=== PATIENT | male | born 1975 | race Caucasian/White ===

== ENCOUNTER 2022-05-07 11:07 | Emergency (ER) | payer OTHER, SELFPAY ==
--- NOTE | 2022-05-07 11:29 | HMH.EDUTC ---
[facility] [place] Clinical Impression: Viral syndrome Disposition: Home, Self-Care Condition on Discharge: Good Instructions: DI for Viral Syndrome, Preventing the Spread of Coronavirus Discharge Instructions Additional Instructions: Drink plenty of fluids. Take tylenol or ibuprofen for pain or fever. Take the medications as directed. Follow up with your regular doctor. GO TO THE ER FOR ANY WORSENING SYMPTOMS Quarantine until you know the results of your covid-19 test. Notify your school or workplace of your results and follow their instructions regarding return to work/school. Prescriptions: Ondansetron [Zofran 4mg ODT] 4 mg PO Q8HP PRN #20 tab PRN Reason: Nausea Transmission Status: Received by [facility] [employer] Benzonatate [Benzonatate 100mg cap] 100 mg PO TIDP PRN #30 cap PRN Reason: Cough Transmission Status: Received by [facility] Referrals: Angel Shaffer MD [Primary Care Provider] - Forms: Work/School Release Time of Disposition: 12:00 Medical Decision Making - Medical Records Medical records reviewed: No: I reviewed the patient's medical records. - Lamberto Inquiry Pt receiving controlled substance: No Vital Signs: 05/07/22 11:30 05/07/22 12:06 Temperature 99.5 F 99.5 F Temperature Source Oral Pulse Rate 82 Pulse Rate [Left] 82 Respiratory Rate 16 16 Blood Pressure 108/69 L Blood Pressure [Right Arm] 108/69 L Blood Pressure Mean [Right Arm] 82 02 Sat by Pulse Oximetry 100 - Lab Data Lab results reviewed: Yes: I reviewed the patient's lab results. Lab Results 05/07/22 11:25: Strep Scn Rapid Clinic Negative 05/07/22 11:43: SARS-CoV-2 (PCR) Detected A, Influenza A Untype (PCR) Not detected, Influenza Type B (PCR) Not detected Orders (Tests/Meds): ORDERS Category Date Time Status Strep Screen Confirmation Stat Micro 05/07/22 11:25 Received [facility] [place] - General Stated complaint: chills, sore throat, body aches Time Seen by Provider: 05/07/22 11:29 - History of Present Illness Provider Complaint: He states that for the past 1 day he has had chills, body aches, low grade fever, nausea and sore throat. 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 - Related Data Previous Rx's Medication Instructions Recorded Benzonatate [Benzonatate 100mg 100 mg PO TIDP PRN #30 cap 05/07/22 cap] Ondansetron [Zofran 4mg ODT] 4 mg PO Q8HP PRN #20 tab 05/07/22 Allergies Allergy/AdvReac Type Severity Reaction Status Date / Time No Known Allergies Allergy Verified 05/07/22 11:33 [facility] History - Hepatitis A Screen Attestation statement:: This patient has been screened for Hepatitis A risk factors. I have reviewed the patient's past medical history: Yes ROS Obtained: Yes All systems reviewed & no additional complaints - Constitutional Constitutional: Reports as per HPI - Eyes Eyes: Denies eye discharge - ENT Ears, Nose, Mouth, and Throat: Reports as per HPI - Cardiovascular Cardiovascular: Denies chest pain Physical Exam - General General appearance: alert, in no apparent distress - Head Head exam: atraumatic, normocephalic, normal inspection - Eye Eye exam: Present: normal appearance, PERRL, EOMI - ENT ENT exam: Present: normal exam, normal oropharynx, mucous membranes moist, TM's normal bilaterally, normal external ear exam - Neck Neck exam: Present: normal inspection, full ROM, trachea midline. Absent: meningismus, lymphadenopathy - Chest Chest inspection: Present: normal inspection, symmetric chest wall rise. Absent: tenderness - Respiratory Respiratory exam: Present: normal lung sounds bilaterally. Absent: respiratory distress - Cardiovascular Cardiovascular exam: Present: regular rate, normal rhythm. Absent: JVD - Abdominal Exam Abdominal exam: Present: soft, normal bowel sounds. Absent: distention, tenderness, guarding - Extremities Exam Extremities
[2022-05-07 11:30] VITALS: BP 108/69; PULSE 82; RESP 16; TEMP 37.5; O2SAT 100; BMI 22.8
[2022-05-07 11:38] LABS: UTC Strep Screen (Rapid) Negative (Negative)
[2022-05-07 11:52] LABS: Influenza A, PCR Not Detected (NotDetected); Influenza B, PCR Not Detected (NotDetected)
[2022-05-07 12:06] VITALS: BP 108/69; PULSE 82; RESP 16; TEMP 37.5
[2022-05-07 13:37] LABS: Coronavirus 19, PCR Detected (NotDetected)
== END 2022-05-07 12:06 | disposition home or self-care (01) ==
PROVIDERS: Emergency Provider Nurse Practitioner Family; PCP Internal Medicine Adolescent Medicine
DX: U07.1 COVID-19 (principal)
CPT/HCPCS: 87880; 99212; C9803; G0463; U0003; U0005

== ENCOUNTER 2022-05-20 10:34 | Emergency (ER) | payer OTHER, SELFPAY ==
[2022-05-20 10:35] VITALS: BP 144/81; PULSE 83; RESP 16; TEMP 36.9; O2SAT 98; BMI 22.8
--- NOTE | 2022-05-20 10:45 | HMH.EDBACK ---
Discharge Plan Disposition Patient Disposition: Home, Self-Care Prescriptions Prescriptions: New ketorolac 10 mg tablet 10 mg PO Q8H PRN (Reason: pain) Qty: 20 0RF methocarbamol 750 mg tablet 750 mg PO Q8H Qty: 90 0RF hydrocodone-acetaminophen 5-325 mg tablet 1 tab PO Q6H PRN (Reason: pain) Qty: 10 0RF No Action benzonatate 100 MG capsule 100 mg PO TIDP PRN (Reason: Cough) Qty: 30 0RF ondansetron 4 MG tablet,disintegrating 4 mg PO Q8HP PRN (Reason: Nausea) Qty: 20 0RF Referrals Follow up/Referrals: Angel Shaffer MD [Primary Care Provider] - See instructions Clinical Impressions Clinical Impression: Strain of lumbar region, Sacroiliac joint pain Instructions Patient Instructions: DI for Low Back Pain, Hydrocodone, Methocarbamol, Ketorolac Print Language Print Language: Greenlandic Discharge ED Provider: Pan Moser Back Pain HPI General Chief Complaint: Back Pain/Injury Stated Complaint: lower back pain Time Seen by Provider: 05/20/22 10:45 Mode of Arrival: Ambulatory History of Present Illness HPI Narrative: 46-year-old male with history of prior lumbar fusion at L4-L5 about 12 years ago. He presents today with chief complaint of lower back pain radiating into the right hip and sacroiliac region. States he had been off work recently with COVID, went and resumed activities and over the past day has noticed significantly worsening pain. 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 Denies any numbness tingling, radiation of pain down the leg, urinary or fecal incontinence or retention, fevers, chills, nausea, vomiting or other symptoms at this time. Related Data Previous Rx's Medication Instructions Recorded benzonatate 100 mg capsule 100 mg PO TIDP PRN Cough #30 caps 05/07/22 ondansetron 4 mg disintegrating 4 mg PO Q8HP PRN Nausea #20 tabs 05/07/22 tablet hydrocodone 5 mg-acetaminophen 325 1 tab PO Q6H PRN pain #10 tabs 05/20/22 mg tablet ketorolac 10 mg tablet 10 mg PO Q8H PRN pain #20 tabs 09/05/22 methocarbamol 750 mg tablet 750 mg PO Q8H #90 tabs 05/20/22 Allergies Allergy/AdvReac Type Severity Reaction Status Date / Time No Known Allergies Allergy Verified 05/07/22 11:33 PFSH PFS Social History Smoking Status: Never smoker alcohol intake: never current occupational status: employed Travel in the last 8 weeks: None ROS Obtained: Yes Systems reviewed as appropriate & no additional complaints except as documented Constitutional Constitutional: Reports system reviewed and no additional complaints, except as documented Eyes Eyes: Reports system reviewed and no additional complaints, except as documented ENT Ears, Nose, Mouth, and Throat: Reports system reviewed and no additional complaints, except as documented and Denies neck pain Cardiovascular Cardiovascular: Reports system reviewed and no additional complaints, except as documented Respiratory Respiratory: Reports system reviewed and no additional complaints, except as documented Gastrointestinal Gastrointestingal: Reports system reviewed and no additional complaints, except as documented Genitourinary Male Genitourinary: Reports system reviewed and no additional complaints, except as documented Musculoskeletal Musculoskeletal: Reports as per HPI, Reports back pain, Denies neck pain, Denies numbness, Denies radiating pain into limb and Denies tingling Integumentary/Breasts Skin/Breast: Reports system reviewed and no additional complaints, except as documented Neurologic Neurologic: Reports system reviewed and no additional complaints, except as documented, Denies numbness and Denies tingling Physical Exam General General appearance: alert and in no apparent distress Head Head exam: atraumatic, normocephalic and normal inspection Eye Eye exam: Presen
--- NOTE | 2022-05-20 10:51 | XR_ITS ---
PROCEDURE INFORMATION: Exam: XR Pelvis Exam date and time: 05/20/2022 10:51 AM Age: 46 years old Clinical indication: Pelvic pain and other: Low back; Prior surgery; Surgery date: 6+ months; Surgery type: Years ago lumbar surgery; Additional info: Low back, sacral pain TECHNIQUE: Imaging protocol: Radiologic exam of the pelvis. Views: 1 or 2 view. COMPARISON: No relevant prior studies available. FINDINGS: Bones/joints: Artifact superimposed upon the sacrum. Incomplete visualization of postoperative changes in the lower lumbar spine. Soft tissues: Unremarkable. Vasculature: Scattered phleboliths in the pelvis. IMPRESSION: No evidence of acute osseous injury.
--- NOTE | 2022-05-20 10:51 | XR_ITS ---
PROCEDURE INFORMATION: Exam: XR Lumbosacral Spine Exam date and time: 05/20/2022 10:52 AM Age: 46 years old Clinical indication: Low back pain; Prior surgery; Surgery date: 6+ months; Surgery type: Years ago lumbar surgery; Additional info: Low back, sacral pain TECHNIQUE: Imaging protocol: Radiologic exam of the lumbosacral spine. Views: 2 or 3 views. COMPARISON: CR XR PELVIS 1-2V 05/20/2022 10:51 AM FINDINGS: Bones/joints: Postoperative changes consistent with anterior spinal fusion at L4-L5. No interbody spacers demonstrated. Clinically correlate. Pars defect incompletely visualized at L5. Irregularity of the fixation screw traversing the L5 vertebral body. Findings suggesting hardware malfunction. 2 mm retrolisthesis of L3 with respect L4. Moderate narrowing of the disc space. 2 mm retrolisthesis of L2 with respect L3. Soft tissues: Unremarkable. IMPRESSION: 1. Evidence of anterior spinal fusion at L4-L5. Findings suggesting hardware malfunction involving the fixation screw traversing the L5 vertebral body. Findings incompletely visualized. 2. 2 mm retrolisthesis of L3 with respect L4. 3. 2 mm retrolisthesis of L2 with respect L3.
--- NOTE | 2022-05-20 11:06 | PC.NURSE ---
pt return from radiology
[2022-05-20 12:46] VITALS: BP 121/85; PULSE 73; RESP 16; TEMP 36.9; O2SAT 99
== END 2022-05-20 12:46 | disposition home or self-care (01) ==
PROVIDERS: Emergency Provider Emergency Medicine; PCP Internal Medicine Adolescent Medicine
DX: S39.012A Strain of muscle, fascia and tendon of lower back, initial encounter (principal); M53.3 Sacrococcygeal disorders, not elsewhere classified; Z86.16 Personal history of COVID-19
CPT/HCPCS: 72100; 72170; 96372; 99283

== ENCOUNTER 2023-12-25 07:13 | Outpatient (CLI) | payer OTHER, SELFPAY ==
[2023-12-25 07:35] LABS: Basophils # 0.1 K/mm3 (0-0.2); Basophils % 3.8 % (0.1-2.0); Eosinophils # 0.1 K/mm3 (0.0-0.4); Eosinophils % 2.6 % (0.1-12.0); Hemoglobin 16.7 g/dL (14.1-18.0); Lymphocytes # 1.8 K/mm3 (0.7-4.5); Mean Corpuscular HGB Conc 32.8 g/dL (31.8-35.4); Mean Corpuscular Hemoglobin 30.9 pg (27.0-31.2); Mean Corpuscular Volume 94.4 fl (80-94); Mean Platelet Volume 7.9 fl (7.4-10.4); Monocytes # 0.3 K/mm3 (0.1-1.0); Monocytes % 7.2 % (1.7-9.3); Neutrophils # 1.3 K/mm3 (1.8-7.8); Neutrophils % 35.4 % (37.0-80.0); Platelet Count 212 K/mm3 (142-424); Red Cell Distribution Width 13.1 % (11.5-17.5); White Blood Count 3.5 K/mm3 (4.8-10.8)
[2023-12-25 07:37] LABS: MANUAL DIFFERENTIAL MANUAL DIFFERENTIAL (MANUAL DIFF)
[2023-12-25 08:10] LABS: Eosinophils % 1 % (0-3); Lymphocytes % 42 % (10-50); Monocytes % 8 % (2-9); Neutrophils % 42 % (42-76); Nucleated Red Blood Cells 4; Total Cells Counted 100
[2023-12-25 08:12] LABS: Platelet Estimate Normal; RBC Morphology Normal
[2023-12-25 08:15] LABS: Erythrocyte Sedimentation Rate 4 mm/hr (0-15)
[2023-12-25 08:30] LABS: Chloride 107 mmol/L (98-107)
[2023-12-25 08:31] LABS: Potassium 4.4 mmoL/L (3.5-5.1); Sodium 139 mmol/L (136-145)
[2023-12-25 08:33] LABS: Alanine Aminotransferase 28 U/L (12-78); Aspartate Amino Transferase 33 U/L (17-59); Blood Urea Nitrogen 17 mg/dl (9-20); Estimated Glomerular Filt Rate 80 ml/min (>60); GFR (African American) 97 ML/MIN (>60)
[2023-12-25 08:34] LABS: Albumin Level 4.8 g/dl (3.5-5.0); Albumin/Globulin Ratio 1.9 (1.1-1.8); Alkaline Phosphatase 51 U/L (38-126); Anion Gap 9.4 mEq/L (5-15); Bilirubin,Total 2.1 mg/dl (0.2-1.3); Calcium 9.8 mg/dl (8.4-10.2); Carbon Dioxide 27 mmol/L (22.0-30.0); Chol/HDL Ratio 3.4 (1-3.5); Cholesterol 198 mg/dl (140-200); Globulin 2.5 g/dL (1.3-3.2); Glucose 103 mg/dl (74-100); HDL Cholesterol 58 mg/dl (40-60); Total Protein,Serum 7.3 g/dl (6.3-8.2); Triglycerides 62 mg/dl (30-150); VLDL Cholesterol 12 mg/dL (0-40)
[2023-12-25 08:40] LABS: C-Reactive Protein 0.4 mg/L (0-4)
[2023-12-25 08:45] LABS: Direct LDL Cholesterol 97.67 mg/dL (100-129)
[2023-12-25 10:54] LABS: 25-OH Vitamin D, Total 23.6 ng/mL (30-100)
[2023-12-25 11:07] LABS: Thyroid Stimulating Hormone 2.13 uIU/mL (0.465-4.68)
[2023-12-25 11:26] LABS: Vitamin B12 396 pg/mL (239-931)
== END 2023-12-25 23:59 | disposition home or self-care (01) ==
LOC: LAB 07:13
PROVIDERS: PCP Nurse Practitioner Family; Visit Provider Nurse Practitioner Family
DX: Z00.00 Encounter for general adult medical examination without abnormal findings (principal); M25.50 Pain in unspecified joint; R53.83 Other fatigue; E55.9 Vitamin D deficiency, unspecified; D72.819 Decreased white blood cell count, unspecified; Z79.899 Other long term (current) drug therapy
CPT/HCPCS: 36415; 80053; 80061; 82306; 82607; 84443; 85007; 85025; 85651; 86140

== ENCOUNTER 2024-05-04 06:27 | Day surgery (SDC) | payer OTHER, SELFPAY ==
[2024-04-29 08:33] VITALS: BMI 23.6
[2024-05-04 06:38] VITALS: BP 128/80; PULSE 57; RESP 18; TEMP 36.2; O2SAT 100
[2024-05-04] MEDS: LACTATED RINGERS 1000ML 1,000 ML 25 ML IV (06:43)
--- NOTE | 2024-05-04 07:05 | P.PNANES_ITS ---
[facility] Disclaimer: The information contained in this section may have been updated after the patient was seen, as this information can be updated by other users. Medical History History of COVID-19 Surgical History H/O spinal fusion Family History Other Cancer Social History Smoking Status: Never smoker alcohol intake: never substance use type: marijuana current occupational status: employed Travel in the last 8 weeks: Inside the [place] caffeine: No [facility] Anesthesia Checklist Patient Identification Patient Identification: Arm Band and Verbal (Name & ) Structural Data Admitted From: Home Planned Operative Procedure/s: Colonoscopy Consent for Planned Operative Procedure(s) Verified: Yes Verified Documents: Surgical Consent and History and Physical NPO Status Verified Time NPO: 00:00 Additional verifications Anesthesia Reactions: No Airway Assessment Mallampati Score:: Class II C-Spine Mobility Assessed: Yes TMJ Mobility Assessed: Yes Dentition: Good Dentition Neurological Assessment Level of Consciousness: Awake Hx Seizures: No Numbness or tingling in extremities: No Anesthesia Plan Anesthesia Risk discussed: Yes Anesthesia Plan: Verified ASA Class: II Anesthesia Type: MAC
[2024-05-04 07:24] VITALS: O2SAT 100
--- NOTE | 2024-05-04 07:24 | P.PCN_ITS ---
Procedure: Date: 05/04/24 Patient Date of :: 1975 Procedure Performed:: Colonoscopy Indications:: Screening Performing Provider:: Arun Black MD Referring Provider:: . Sedation:: Monitored anesthesia care Procedure:: After informed consent was obtained the patient was taken to the endoscopy suite. Sedation ensued after the patient was transferred to the left lateral decubitus position. Pulse, blood pressure, and oxygen saturation were monitored throughout the procedure. Digital rectal exam revealed no significant abnormality. The colonoscope was placed in position. The entire colon was eval uated. The colonoscope was carefully removed and the patient was transferred to recovery in stable condition. Please see findings and specimens below for detail. Findings:: Bowel preparation fair to moderate Hemorrhoidal cushions Fairly profound tortuosity (particularly sigmoid colon) Moderate spasticity Specimens:: None Recommendations:: Repeat colonoscopy in approximately 3 years secondary to tortuosity and spasticity. Complications:: No immediate Estimated blood obtained (mL): 0 Colonoscopy Component Colonoscopy Component Was a colonoscopy performed during today's procedure?: Yes Recommended follow up colonoscopy of at least 10 years?: No If no, follow up colonoscopy recommended in ___ years?: (See above) Reason for not recommending >/= 10 yr follow-up interval?: (See above)
[2024-05-04 07:50] VITALS: BP 98/58; PULSE 58; RESP 18; TEMP 36.3; O2SAT 98
[2024-05-04 08:00] VITALS: BP 107/64; PULSE 56; RESP 18; O2SAT 99
[2024-05-04 08:10] VITALS: BP 109/80; PULSE 53; RESP 18; O2SAT 100
[2024-05-04 08:30] VITALS: BP 117/72; PULSE 51; RESP 18; O2SAT 100
== END 2024-05-04 08:30 | disposition home or self-care (01) ==
PROVIDERS: PCP Nurse Practitioner Family; Visit Provider Surgery
PROC: 0DJD8ZZ Inspection of Lower Intestinal Tract, Via Natural or Artificial Opening Endoscopic (ICD-10-PCS; CPT 45378; principal; 2024-05-04 07:30)
DX: Z12.11 Encounter for screening for malignant neoplasm of colon (principal); K64.9 Unspecified hemorrhoids
CPT/HCPCS: 45378; J7120

== ENCOUNTER 2024-11-26 07:11 | Outpatient (CLI) | payer OTHER, SELFPAY ==
[2024-11-26 07:33] LABS: Basophils # 0.1 K/mm3 (0-0.2); Basophils % 1.5 % (0.1-2.0); Eosinophils # 0.1 K/mm3 (0.0-0.4); Eosinophils % 2.3 % (0.1-12.0); Hematocrit 45.4 % (42.0-52.0); Lymphocytes # 1.6 K/mm3 (0.7-4.5); Lymphocytes % 45.7 % (10-50); Mean Corpuscular HGB Conc 35.2 g/dL (31.8-35.4); Mean Corpuscular Hemoglobin 31.1 pg (27.0-31.2); Mean Corpuscular Volume 88.3 fl (80-94); Mean Platelet Volume 10.6 fl (7.4-10.4); Monocytes # 0.3 K/mm3 (0.1-1.0); Monocytes % 8.2 % (1.7-9.3); Neutrophils # 1.4 K/mm3 (1.8-7.8); Platelet Count 235 K/mm3 (142-424); Red Blood Count 5.14 M/mm3 (4.60-6.20); Red Cell Distribution Width 12.2 % (11.5-17.5); White Blood Count 3.4 K/mm3 (4.8-10.8)
[2024-11-26 08:18] LABS: Alanine Aminotransferase 24 U/L (12-78); Albumin Level 4.9 g/dl (3.5-5.0); Albumin/Globulin Ratio 2.2 (1.1-1.8); Alkaline Phosphatase 48 U/L (38-126); Anion Gap 8.7 mEq/L (5-15); Aspartate Amino Transferase 27 U/L (17-59); Bilirubin,Total 2.7 mg/dl (0.2-1.3); Blood Urea Nitrogen 11 mg/dl (9-20); Calcium 9.8 mg/dl (8.4-10.2); Carbon Dioxide 28 mmol/L (22.0-30.0); Chloride 104 mmol/L (98-107); Chol/HDL Ratio 2.8 (1-3.5); Cholesterol 176 mg/dl (140-200); Estimated Glomerular Filt Rate 80 ml/min (>60); GFR (African American) 97 ML/MIN (>60); Globulin 2.2 g/dL (1.3-3.2); Glucose 98 mg/dl (74-100); HDL Cholesterol 64 mg/dl (40-60); Potassium 4.7 mmoL/L (3.5-5.1); Sodium 136 mmol/L (136-145); Total Protein,Serum 7.1 g/dl (6.3-8.2); Triglycerides 67 mg/dl (30-150); VLDL Cholesterol 13 mg/dL (0-40)
[2024-11-26 08:33] LABS: 25-OH Vitamin D, Total 33.6 ng/mL (30-100)
[2024-11-26 09:06] LABS: Vitamin B12 333 pg/mL (239-931)
== END 2024-11-26 23:59 | disposition home or self-care (01) ==
LOC: LAB 07:12
PROVIDERS: PCP Nurse Practitioner Family; Visit Provider Nurse Practitioner Family
DX: Z00.00 Encounter for general adult medical examination without abnormal findings (principal); R53.83 Other fatigue; E53.8 Deficiency of other specified B group vitamins; E55.9 Vitamin D deficiency, unspecified; Z68.22 Body mass index [BMI] 22.0-22.9, adult
CPT/HCPCS: 36415; 80053; 80061; 82306; 82607; 84443; 85025

== ENCOUNTER 2024-12-01 07:16 | Outpatient (CLI) | payer OTHER, SELFPAY ==
[2024-12-01 07:28] LABS: MANUAL DIFFERENTIAL MANUAL DIFFERENTIAL (MANUAL DIFF)
[2024-12-01 07:43] LABS: Basophils # 0.1 K/mm3 (0-0.2); Basophils % 1.2 % (0.1-2.0); Eosinophils # 0.1 K/mm3 (0.0-0.4); Eosinophils % 2.9 % (0.1-12.0); Hematocrit 43.2 % (42.0-52.0); Hemoglobin 15.3 g/dL (14.1-18.0); Lymphocytes # 1.8 K/mm3 (0.7-4.5); Lymphocytes % 43.4 % (10-50); Mean Corpuscular HGB Conc 35.4 g/dL (31.8-35.4); Mean Corpuscular Hemoglobin 31.5 pg (27.0-31.2); Mean Corpuscular Volume 88.9 fl (80-94); Mean Platelet Volume 10.3 fl (7.4-10.4); Monocytes # 0.3 K/mm3 (0.1-1.0); Monocytes % 6.7 % (1.7-9.3); Neutrophils # 1.9 K/mm3 (1.8-7.8); Neutrophils % 45.6 % (37.0-80.0); Platelet Count 228 K/mm3 (142-424); Red Blood Count 4.86 M/mm3 (4.60-6.20); Red Cell Distribution Width 12.4 % (11.5-17.5); White Blood Count 4.2 K/mm3 (4.8-10.8)
[2024-12-01 11:59] LABS: Eosinophils % 2 % (0-3); Lymphocytes % 42 % (10-50); Monocytes % 7 % (2-9); Neutrophils % 49 % (42-76); Total Cells Counted 100
[2024-12-01 12:07] LABS: Platelet Estimate Normal; RBC Morphology Normal
[2024-12-03 07:27] LABS: Peripheral Smear Review Scanned Result
== END 2024-12-01 23:59 | disposition home or self-care (01) ==
LOC: LAB 07:17
PROVIDERS: PCP Nurse Practitioner Family; Visit Provider Nurse Practitioner Family
DX: D72.819 Decreased white blood cell count, unspecified (principal)
CPT/HCPCS: 36415; 85007; 85014; 85018; 85048; 85049

== ENCOUNTER 2024-12-02 07:28 | Outpatient (CLI) | payer OTHER, SELFPAY ==
--- NOTE | 2024-12-02 07:30 | US_ITS ---
FINAL REPORT TECHNIQUE: Multiple transverse and longitudinal images CLINICAL HISTORY: ELEVATED BILIRUBIN FINDINGS: The gallbladder shows no wall thickening, distention or stone disease. No biliary ductal dilatation is appreciated. No fluid collections are seen. Limited portions of the right liver are unremarkable. Limited portions of the right kidney are unremarkable. IMPRESSION: 1. No evidence of cholelithiasis 2. No evidence of biliary obstruction Reviewed, Interpreted and Dictated by Nhi Zimmer MD Transcribed by Mirta Cormier Authenticated and [facility]
== END 2024-12-02 23:59 | disposition home or self-care (01) ==
LOC: RAD 07:28
PROVIDERS: PCP Nurse Practitioner Family; Visit Provider Nurse Practitioner Family
DX: R17 Unspecified jaundice (principal); D72.819 Decreased white blood cell count, unspecified; E53.8 Deficiency of other specified B group vitamins
CPT/HCPCS: 76705

== ENCOUNTER 2024-12-07 12:24 | Outpatient (CLI) | payer OTHER, SELFPAY ==
[2024-12-07 13:23] LABS: Albumin Level 5.7 g/dl (3.5-5.0); Chloride 102 mmol/L (98-107)
[2024-12-07 13:24] LABS: Sodium 137 mmol/L (136-145)
[2024-12-07 13:26] LABS: Bilirubin,Unconjugated 3.3 mg/dL (0.0-1.1); Blood Urea Nitrogen 15 mg/dl (9-20); Estimated Glomerular Filt Rate 90 ml/min (>60); GFR (African American) 109 ML/MIN (>60)
[2024-12-07 13:27] LABS: Alanine Aminotransferase 31 U/L (12-78); Albumin/Globulin Ratio 2.2 (1.1-1.8); Alkaline Phosphatase 54 U/L (38-126); Aspartate Amino Transferase 32 U/L (17-59); Bilirubin,Direct 0.1 mg/dl (0.0-0.4); Bilirubin,Indirect 3.3 mg/dL (0.0-0.9); Bilirubin,Total 3.4 mg/dl (0.2-1.3); Calcium 10.4 mg/dl (8.4-10.2); Carbon Dioxide 28 mmol/L (22.0-30.0); Globulin 2.6 g/dL (1.3-3.2); Glucose 92 mg/dl (74-100); Total Protein,Serum 8.3 g/dl (6.3-8.2)
[2024-12-08 10:11] LABS: HBsAg Screen Negative (Negative); HCV Ab Non Reactive (Non Reactive); Hep A Ab, IGM Negative (Negative); Hep B Core Ab, IgM Negative (Negative)
== END 2024-12-07 23:59 | disposition home or self-care (01) ==
LOC: LAB 12:25
PROVIDERS: PCP Nurse Practitioner Family; Visit Provider Internal Medicine Medical Oncology
DX: D72.819 Decreased white blood cell count, unspecified (principal)
CPT/HCPCS: 36415; 80053; 80074; 82247; 82248; 82525; 82746; 86803

== ENCOUNTER 2025-02-11 07:30 | Outpatient (CLI) | payer OTHER, SELFPAY ==
[2025-02-11 09:04] LABS: Alanine Aminotransferase 54 U/L (12-78); Albumin Level 4.3 g/dl (3.5-5.0); Albumin/Globulin Ratio 1.7 (1.1-1.8); Alkaline Phosphatase 46 U/L (38-126); Anion Gap 9.4 mEq/L (5-15); Aspartate Amino Transferase 41 U/L (17-59); Bilirubin,Direct 0.1 mg/dl (0.0-0.4); Bilirubin,Indirect 2.1 mg/dL (0.0-0.9); Bilirubin,Total 2.2 mg/dl (0.2-1.3); Bilirubin,Unconjugated 2.1 mg/dL (0.0-1.1); Blood Urea Nitrogen 13 mg/dl (9-20); Calcium 9.3 mg/dl (8.4-10.2); Carbon Dioxide 30 mmol/L (22.0-30.0); Chloride 103 mmol/L (98-107); Estimated Glomerular Filt Rate 80 ml/min (>60); GFR (African American) 97 ML/MIN (>60); Globulin 2.5 g/dL (1.3-3.2); Glucose 95 mg/dl (74-100); Potassium 4.4 mmoL/L (3.5-5.1); Sodium 138 mmol/L (136-145); Total Protein,Serum 6.8 g/dl (6.3-8.2)
[2025-02-15 07:11] LABS: ALT (SGPT) P5P 53 IU/L (0-55); AST (SGOT) P5P 37 IU/L (0-40); Alpha 2-Macroglobulins, Qn 156 mg/dL (110-276); Apolipoprotein A-1 164 mg/dL (101-178); Bilirubin, Total 1.6 mg/dL (0.0-1.2); Cholesterol, Total 204 mg/dL (100-199); Fibrosis Score 0.35 (0.00-0.21); Fibrosis Stage F1-F2 (.); GGT 10 IU/L (0-65); Glucose 99 mg/dL (70-99); Haptoglobin 23 mg/dL (23-355); Steatosis Score 0.25 (0.00-0.40); Triglycerides 112 mg/dL (0-149)
== END 2025-02-11 23:59 | disposition home or self-care (01) ==
LOC: LAB 07:32
PROVIDERS: PCP Nurse Practitioner Family; Visit Provider Nurse Practitioner Family
DX: R17 Unspecified jaundice (principal)
CPT/HCPCS: 36415; 80053; 82172; 82247; 82248; 82465; 82947; 82977; 83010; 83883; 84450; 84460; 84478